=== PATIENT | male | born 1995 | race Caucasian/White ===

== ENCOUNTER 2020-11-11 17:24 | Emergency (ER) | payer OTHER ==
[~2020-11-11 17:24] MED LIST: ANTIVERT25 MG PO; NORCO 5-325 TA1 EACH PO; ZOFRAN4 M1 PO
[2020-11-11 19:43] LABS: BILIRUBIN NEGATIVE (NEGATIVE); BLOOD TRACE-INTACT Ery/uL (NEGATIVE); CLARITY CLEAR (CLEAR); COLOR YELLOW (YELLOW); GLUCOSE (U) NORMAL (NORMAL); LEUKOCYTES NEGATIVE Leu/uL (NEGATIVE); NITRITE NEGATIVE (NEGATIVE); PROTEIN NEGATIVE (NEGATIVE)
[2020-11-11 19:46] LABS: ECSTASY (MDMA) NEGATIVE (NEGATIVE); MARIJUANA (THC) NEGATIVE (NEGATIVE); METHADONE NEGATIVE (NEGATIVE); OPIATES NEGATIVE (NEGATIVE)
[2020-11-11 19:47] LABS: AMPHETAMINES NEGATIVE (NEGATIVE); BARBITURATES NEGATIVE (NEGATIVE); OXYCODONE NEGATIVE (NEGATIVE)
[2020-11-11 19:52] LABS: BASOPHIL 0.5 % (0-2); EOSINOPHIL 2.7 % (0-5); HCT 47.4 % (42.0-52.0); HGB 16.4 g/dl (13.2-18.0); LYMPHOCYTE 21.2 % (15-48); MCHC 34.6 g/dL (32.0-36.0); MCV 92.6 fL (78.0-100.0); MONOCYTE 12.3 % (0-12); MPV 10.7 fL (6.0-9.5); NEUTROPHIL 63.1 % (41-80); NRBC 0; PLT 286 K/uL (150-400); RBC 5.12 M/uL (4.70-6.00); RDW 12.3 % (11.5-14.0); WBC 8.6 K/uL (4.0-10.5)
[2020-11-11 19:55] LABS: SQUAMOUS EPITHELIAL CELLS RARE
[2020-11-11 20:11] LABS: ALBUMIN 4.4 g/dL (3.4-5.0); BILIRUBIN - TOTAL 0.7 mg/dL (0.2-1.0); BUN/CREAT RATIO (CALC) 14.6 RATIO; CREATININE 0.96 mg/dL (0.67-1.17); GLOBULIN (CALCULATION) 3.7 g/dL; POTASSIUM 4.2 mmol/L (3.5-5.1); TOTAL PROTEIN 8.1 g/dL (6.4-8.2)
[2020-11-11] MEDS ORDERED: BENTYL10 MG PO (22:50)
== END 2020-11-11 23:25 | disposition home or self-care (01) ==
LOC: FER 17:24
PROVIDERS: Nurse Practitioner Family
DX: R10.84 Generalized abdominal pain (principal); R11.0 Nausea; F17.290 Nicotine dependence, other tobacco product, uncomplicated; Z91.018 Allergy to other foods
CPT/HCPCS: 36415; 80053; 80305; 81001; 82270; 85025; J7030